=== PATIENT | male | born 1955 | race Caucasian/White ===

== ENCOUNTER → 2023-07-29 06:22 | Day surgery (SDC) | payer MEDICARE, OTHER, SELFPAY | LOC: GI 06:22 | PROVIDERS: ATTENDING PHYSICIAN Internal Medicine Gastroenterology | DX: Z12.11 Encounter for screening for malignant neoplasm of colon (principal); K57.30 Diverticulosis of large intestine without perforation or abscess without bleeding; K64.8 Other hemorrhoids; Z86.010 Personal history of colon polyps; D12.3 Benign neoplasm of transverse colon | CPT/HCPCS: 45385; 88305 ==